=== PATIENT | male | born 1940 | race Two or more races ===

== ENCOUNTER 2022-05-09 10:27 | Emergency (ER) | payer SELFPAY ==
[~2022-05-09] VITALS: Ht 165.1 cm; Wt 60.9 kg
[2022-05-09] MEDS ORDERED: LIDOCAINE 2% JELLY 11ml (GLYDO) UR ONE (11:30)
[2022-05-09 11:35] VITALS: BP 170/84
[2022-05-09 12:18] LABS: Urine Bacteria NONE SEEN /hpf (None Seen); Urine Blood 2+ /uL (Negative); Urine WBC <1 /hpf (0 - 3)
[2022-05-09] MEDS ORDERED: TAM04C PO ×2 (12:23→12:28)
== END 2022-05-09 13:04 | disposition home or self-care (01) ==
LOC: ER 10:27
DX: R33.9 Retention of urine, unspecified (principal)
CPT/HCPCS: 81001

== ENCOUNTER 2022-05-11 10:52 | Emergency (ER) | payer SELFPAY ==
[~2022-05-11] VITALS: Ht 165.1 cm; Wt 60.3 kg
[~2022-05-11 10:52] MED LIST: TAM04C PO
[2022-05-11 11:42] VITALS: BP 172/97
== END 2022-05-11 12:17 | disposition home or self-care (01) ==
LOC: ER 10:59
DX: T83.011A Breakdown (mechanical) of indwelling urethral catheter, initial encounter (principal); R33.9 Retention of urine, unspecified; Y92.89 Other specified places as the place of occurrence of the external cause
CPT/HCPCS: 51702